=== PATIENT | male | born 1960 | race Caucasian/White ===

== ENCOUNTER 2017-08-31 14:02 | Outpatient (CLI) | payer MEDICAID | END 2017-08-31 23:59 | disposition home or self-care (01) | LOC: CARD DIAG 14:02 | PROVIDERS: ATTEND Internal Medicine | DX: I07.1 Rheumatic tricuspid insufficiency (principal); J96.20 Acute and chronic respiratory failure, unspecified whether with hypoxia or hypercapnia | CPT/HCPCS: 93308 ==